=== PATIENT | female | born 1955 | race Caucasian/White ===

== ENCOUNTER 2017-04-27 10:51 | Emergency (ER) | payer MEDICARE, MEDICAID ==
[~2017-04-27] VITALS: Ht 162.6 cm; Wt 83.0 kg
[2017-04-27 11:12] VITALS: BP 125/54
== END 2017-04-27 11:52 | disposition left against medical advice (07) ==
LOC: ER 11:09
DX: G93.40 Encephalopathy, unspecified (principal); I10 Essential (primary) hypertension; E11.9 Type 2 diabetes mellitus without complications; J44.9 Chronic obstructive pulmonary disease, unspecified; F12.10 Cannabis abuse, uncomplicated; Z88.5 Allergy status to narcotic agent
CPT/HCPCS: 99283